=== PATIENT | male | born 1950 | race Caucasian/White ===

== ENCOUNTER 2017-02-28 08:39 | Day surgery (SDC) | payer MEDICARE, OTHER ==
[2017-02-28] MEDS ORDERED: Propofol 200 MG/20 ML SDV ONE (09:09)
[2017-02-28] MEDS ORDERED: Midazolam 1 MG/ML 2 ML SDV ONE (09:09)
[2017-02-28] MEDS ORDERED: fentaNYL 100 MCG/2 ML SDV ONE (09:09)
[2017-02-28] MEDS ORDERED: Lactated Ringers 1,000 ML IV SCH (09:15)
--- NOTE | 2017-03-01 08:23 | OR ---
DATE OF PROCEDURE: 02/28/2017 PREOPERATIVE DIAGNOSIS: History of colon polyps. POSTOPERATIVE DIAGNOSES: Diverticulosis, history of colon polyps. PROCEDURE: Colonoscopy to the cecum. ANESTHESIA: IV anesthesia with monitored anesthesia care. INDICATION: This 66-year-old white male is referred for a colonoscopy because in the remote past of having colon polyps. He says his last colonoscopic exam was done 5 years ago. He is having these every 5 years. I counseled him for the procedure including risks and alternatives, and he gave his informed consent to proceed. DESCRIPTION OF PROCEDURE: The patient was placed in the left lateral decubitus position. IV anesthesia was administered by the Anesthesia Service. Time-out was held. A rectal exam was performed, which was unremarkable. The flexible video Olympus colonoscope was introduced through his anus, up his rectum and out his colon all the way to the cecum. Once the cecum was reached, the scope was slowly withdrawn, examining the mucosa throughout. No mucosal abnormalities were noted until we reached the left side of the colon. Here, we saw a very rare diverticulum. The scope was retroflexed in the rectum with the distal rectum appearing unremarkable. The scope was straightened and removed. He tolerated the procedure well. Jay Calderon MD /[id number] AMANDA
== END 2017-02-28 12:10 | disposition home or self-care (01) ==
LOC: JP.SDS 08:39
PROVIDERS: ATTEND Surgery
DX: Z12.11 Encounter for screening for malignant neoplasm of colon (principal); K57.30 Diverticulosis of large intestine without perforation or abscess without bleeding; I10 Essential (primary) hypertension; F41.9 Anxiety disorder, unspecified; E11.9 Type 2 diabetes mellitus without complications; Z86.010 Personal history of colon polyps; Z88.2 Allergy status to sulfonamides; Z96.649 Presence of unspecified artificial hip joint
CPT/HCPCS: G0105; J2250; J2704; J3010; J7120

== ENCOUNTER 2020-07-05 14:47 | Emergency (ER) | payer BC, MEDICARE ==
[2020-07-05] MEDS ORDERED: Lidocaine 2% 20 ML MDV NERVRT ONE (15:51)
[2020-07-05] MEDS ORDERED: Bacitracin Oint 1 GM U/D Packet TOP ONE (15:52)
--- NOTE | 2020-07-05 15:53 | EDM.PDOC ---
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 His last tetanus was less than 10 yrs ago. Onset: Today, Sudden Onset Date: 07/05/20 Duration: Minutes: Location: Reports: Upper Extremity, Left Quality: Reports: Burning Severity: Mild Improves with: Reports: None Worsens with: Reports: Other (touching wound) Context: Reports: Trauma Associated Symptoms: Reports: No Other Symptoms Treatments GROCERY CHECKER: Reports: Dressing(s) - Related Data Allergies Allergy/AdvReac Type Severity Reaction Status Date / Time Sulfa (Sulfonamide Allergy Cannot Verified 07/05/20 15:11 Antibiotics) Remember Home Meds: Home Meds Cyanocobalamin (Vitamin B-12) [B-12] 1,000 mcg PO DAILY 02/24/17 [History] Lisinopril/Hydrochlorothiazide [Lisinopril-Hctz 10-12.5 mg Tab] 1 tab PO DAILY 02/24/17 [History] Metoprolol Succinate [Toprol Xl] 100 mg PO DAILY 02/24/17 [History] metFORMIN HCl [Metformin HCl ER] 750 mg PO BID 02/24/17 [History] Ibuprofen [Advil] 400 mg PO DAILY 05/21/18 [History] Azelaic Acid [Finacea] 1 applic TOP BID 07/05/20 [History] Past Medical History HEENT History: Reports: Impaired Vision Cardiovascular History: Reports: Hypertension Respiratory History: Reports: None Gastrointestinal History: Reports: Colon Polyp, Gastritis Genitourinary History: Reports: None Musculoskeletal History: Reports: Arthritis Neurological History: Reports: None Psychiatric History: Reports: Anxiety Endocrine/Metabolic History: Reports: Diabetes, Type II Hematologic History: Reports: None Immunologic History: Reports: None Oncologic (Cancer) History: Reports: None Dermatologic History: Reports: None - Infectious Disease History Infectious Disease History: Reports: Chicken Pox, Measles, Mononucleosis - Past Surgical History Head Surgeries/Procedures: Reports: None HEENT Surgical History: Reports: None Cardiovascular Surgical History: Reports: None Respiratory Surgical History: Reports: None GI Surgical History: Reports: Colonoscopy, EGD Endocrine Surgical History: Reports: None Musculoskeletal Surgical History: Reports: Hip Replacement Dermatological Surgical History: Reports: None Social & Family History - Family History Family Medical History: No Pertinent Family History - Tobacco Use Tobacco Use Status *Q: Never Tobacco User - Caffeine Use Caffeine Use: Reports: Coffee ED ROS GENERAL - Review of Systems Review Of Systems: See Below Constitutional: Reports: No Symptoms Musculoskeletal: Reports: No Symptoms Skin: Reports: Wound (avulsion distal L thumb, almazan surface. ) Neurological: Reports: No Symptoms ED EXAM, SKIN/RASH Exam: See Below Exam Limited By: No Limitations General Appearance: Alert, WD/WN, No Apparent Distress Extremities: Other (wound L distal thumb) Neurological: Alert, Oriented, CN II-XII Intact, Normal Cognition, No Motor/Sensory Deficits Psychiatric: Normal Affect, Normal Mood Skin: Warm, Dry, Normal Color, No Rash, Wound/Incision (2 cm avulsion distal L thumb almazan surface, not actively bleeding. ) Location, Skin: Upper Extremity, Left Characteristics: Linear Associated features: Tenderness ED SKIN PROCEDURES - Laceration/Wound Repair Left Anterior Distal Digit - 1st (Thumb) Appearance: Subcutaneous, Linear, Other (some tissue missing, avulsion) Distal NVT: Neuro & Vascular Intact, No Tendon Injury Anesthetic Type: Digital Local Anesthesia - Lidocaine (Xylocaine): 2% Plain Local Anesthetic Volume: 5cc Skin Prep: Saline Closed with: Sutures Lac/Wound length In cm: 2 Suture Size: 4-0 Suture Type: Nylon, Interrupted, Simple Drain Placement: No Sterile Dressing Applied: Nurse Tetanus Status Addressed: Yes Complications: No Course - Vital Signs Last Recorded V/S: Last Vital Signs Temp 36.8 C 07/05/20 15:18 Pulse 68 07/05/20 15:18 Resp 17 07/05/20 15:18 BP 178/91 H 07/05/20 15:18 Pulse Ox 100 07/05/20 15:18 - Orders/Labs/Meds Meds: Medications Discontinued Medications Generic Name Dose Route Start Last Admin Trade Name Freq PRN Reason Stop Dose Admin Bacitracin 1 dose 07/05/20 15:52 Bacitracin Oint 1 Gm U/D Packet TOP 07/05/20 15:53 ONETIME ONE Lidocaine HCl 7 ml 07/05/20 15:51 Lidocaine 2% 20 Ml Mdv NERVRT 07/05/20 15:52 ONETIME ONE Departure - Departure Time of Disposition: 16:30 Disposition: Home, Self-Care 01 Condition: Fair Clinical Impression: Laceration of left thumb Qualifiers: Encounter type: initial encounter Damage to nail status: without damage Foreign body presence: without foreign body Qualified Code(s): S61.012A - Laceration without foreign body of left thumb without damage to nail, initial encounter - Discharge Information *PRESCRIPTION DRUG MONITORING PROGRAM REVIEWED*: No *COPY OF PRESCRIPTION DRUG MONITORING REPORT IN PATIENT CALE: No Instructions: Laceration Care, Adult, [id number] Referrals: Asa Ruiz NP [Primary Care Provider] - Forms: ED Department Discharge Additional Instructions: Clean wound twice daily with soap and water. Dry. Apply antibiotic ointment and a new dressing. Elevate to decrease pain/swelling. Use ibuprofen or acetaminophen for pain relief. Stitches out in about 9 days. Recheck for signs of infection. Sepsis Event Note (ED) - Evaluation Sepsis Screening Result: No Definite Risk - Focused Exam Vital Signs: Vital Signs Temp Pulse Resp BP Pulse Ox 07/05/20 15:18 36.8 C 68 17 178/91 H 100 07/05/20 15:01 36.8 C 68 17 178/91 H 100
== END 2020-07-05 16:46 | disposition home or self-care (01) ==
LOC: JP.ED 14:47
DX: S61.012A Laceration without foreign body of left thumb without damage to nail, initial encounter (principal); I10 Essential (primary) hypertension; E11.9 Type 2 diabetes mellitus without complications; Z88.2 Allergy status to sulfonamides; Z79.84 Long term (current) use of oral hypoglycemic drugs; Z79.899 Other long term (current) drug therapy; W27.0XXA Contact with workbench tool, initial encounter
CPT/HCPCS: 12001; 99282; 99282-25

== ENCOUNTER 2020-09-24 05:34 | Day surgery (SDC) | payer MEDICARE ==
[2020-09-24] MEDS ORDERED: Nozin Nasal Sanitizer NASBOTH SCH (06:00)
[2020-09-24] MEDS ORDERED: Povidone-Iodine 10% Soln 118.25 ML Bottle ONE (06:46)
[2020-09-24] MEDS ORDERED: Lactated Ringers 1,000 ML IV SCH (07:00)
[2020-09-24] MEDS ORDERED: fentaNYL 250 MCG/5 ML SDV ONE (07:20)
[2020-09-24] MEDS ORDERED: Succinylcholine 200 MG/10 ML MDV ONE (07:21)
[2020-09-24] MEDS ORDERED: Propofol 200 MG/20 ML SDV ONE (07:21)
[2020-09-24] MEDS ORDERED: Rocuronium 50 MG/5 ML Vial ONE (07:21)
[2020-09-24] MEDS ORDERED: Dexamethasone 4 MG/ML SDV ONE (07:21)
[2020-09-24] MEDS ORDERED: Neostigmine Methylsulfate 1 MG/ML 5 ML Syringe ONE (07:21)
[2020-09-24] MEDS ORDERED: Glycopyrrolate 0.2 MG/ML 5 ML MDV ONE (07:21)
[2020-09-24] MEDS ORDERED: Ondansetron 4 MG/2 ML SDV ONE (07:21)
[2020-09-24] MEDS ORDERED: Bupivacaine 0.5% 30 ML SDV ONE (07:24)
[2020-09-24] MEDS ORDERED: cefOXitin 2 GM in Sodium Chloride 0.9% 50 ML IV ONE (07:30)
[2020-09-24] MEDS ORDERED: ceFAZolin 2 GM in Premix Bag 1 BAG IV ONE (07:30)
[2020-09-24] MEDS ORDERED: ePHEDrine 50 MG/ML SDV ONE (08:38)
[2020-09-24] MEDS ORDERED: Lactated Ringers 1,000 ML ONE (09:41)
[2020-09-24] MEDS ORDERED: Ondansetron 4 MG/2 ML SDV IVPUSH PRN (10:51)
[2020-09-24] MEDS ORDERED: Acetaminophen 325 MG Tab PO PRN (10:51)
[2020-09-24] MEDS ORDERED: Morphine 2 MG/ML SYRINGE IV PRN (10:51)
[2020-09-24] MEDS ORDERED: Acetaminophen/HYDROcodone 325-5 MG Tab PO PRN (10:51)
[2020-09-24] MEDS ORDERED: Magnesium Hydroxide 400 MG/5 ML Susp 30 ML Cup PO PRN (10:51)
[2020-09-24] MEDS ORDERED: LORazepam 1 MG Tab PO PRN (10:58)
[2020-09-24] MEDS ORDERED: Sodium Chloride 0.9% 1,000 ML IV SCH (11:00)
[2020-09-24] MEDS: ceFAZolin 1 GM in Premix Bag 1 BAG IV SCH ×2 (14:07→22:09)
--- NOTE | 2020-09-24 14:07 | CR ---
Shoulder 1V Lt CLINICAL HISTORY: Prosthesis FINDINGS: Patient is status post placement of left shoulder prosthesis. There is a small surgical drain in place. Components appear well seated Impression: Status post left shoulder arthroplasty
[2020-09-24] MEDS: metFORMIN 500 MG Tab PO SCH (16:05)
[2020-09-24] MEDS: Acetaminophen/oxyCODONE 325-5 MG Tab PO PRN (17:56)
[2020-09-24] MEDS: AZELAIC ACID TOP SCH (21:05)
[2020-09-24] MEDS: Docusate Sodium 100 MG Cap PO SCH (21:08)
[2020-09-24] MEDS: Nozin Nasal Sanitizer NASBOTH SCH (21:08)
[2020-09-24] MEDS: Aspirin 325 MG Tab.EC PO SCH (21:08)
[2020-09-25] MEDS: Acetaminophen/oxyCODONE 325-5 MG Tab PO PRN ×2 (03:51→08:47)
[2020-09-25] MEDS: ceFAZolin 1 GM in Premix Bag 1 BAG IV SCH (05:41)
--- NOTE | 2020-09-25 08:47 | PCM.DCSUM1 ---
Discharge Summary - Hospital Course Brief History: Patient is a pleasant 70 y/o male with worsening shoulder pain. Symptoms refractory to conservative management. Elected to undergo a left total shoulder replacement with arthrosurface OVO motion implant and inlay glenoid. Diagnosis: Stroke: No Modified Oh Scale: No Symptoms at All Modified Gordon Scale Score: 0 - Discharge Data Discharge Date: 09/25/20 Discharge Disposition: Home, Self-Care 01 Condition: Good - Referral to Home Health Date of Face to Face Encounter: 09/25/20 Reason for Homebound Status: Motivated to go home, with modifications is fairly independent with ADLs Primary Care Physician: Asa Ruiz NP - Patient Summary/Data Consults: Consultations 09/24/20 10:51 Consult to Case Management/Supervisor Taping [CONS] Routine Comment: Physician Instructions: Discharge placement post hip surgery Service(s) to be Consulted: Case Management Special Instructions: anticipate dc to home PT Evaluation and Treatment [CONS] Routine Please Evaluate and Treat. PT Reason for Consult: Post op Ortho Surgery Discharge Disposition: Home w Home Health Special Instructions: left shoulder arthroplasty, no ER past neutral ROM to elbow and wrist okay This query below is only for informational purposes and is not editable. 09/24/20 10:55 OT Evaluation and Treatment [CONS] Routine Please Evaluate and Treat. OT Reason for Consult: ADL's Special Instructions: Status post left total shoulder arthroplasty This query below is only for informational purposes and is not editable. Hospital Course: Patient is a pleasant 70 y/o male, s/p left total shoulder arthroplasty with the arthrosurface OVO motion and inlay glenoid implant. Patient tolerated surgery well with no complications. No acute events overnight. Patient has remained hemodynamically stable. Patient did have some leaking from around the CJ drain the afternoon and evening of surgery. Drain output over the past 24 hours: ~45 mL. Patient had great control with the block, which wore off around 1600 yesterday. Reports pain has since been managed with Percocet. Tolerating consistent carbohydrate diet well without nausea of emesis. Good appetite. POC Glucoses have been mildly elevated. Has worked with PT on AROM to wrist and elbow. Patient demonstrates understanding of ROM restrictions at shoulder. CJ drain had some leaking yesterday afternoon, new dressing applied over. CJ drain pulled and dressing changed on afternoon of POD#1 prior to discharge Exam: L UE neurovascular intact. Incision well approximated, no surrounding erythema nor active drainage. CJ drain hole with new steri above; no active drainage, surrounding erythema. Very mild warmth to touch of L shoulder. Edema present into L elbow, forearm, and digits 1-5. Demonstrates active and appropriate ROM to elbow and wrist. Beamer Helper strength diminished from swelling. - Patient Instructions Diet: Diabetic Diet Activity: Apply Ice Driving: Do Not Drive Showering/Bathing: Shower in AM Wound/Incision Care: Keep Operative Site/Wound Site Clean and Dry, Change Dressing Daily Notify Provider of: Fever, Increased Pain, Swelling and Redness, Drainage - Discharge Plan *PRESCRIPTION DRUG MONITORING PROGRAM REVIEWED*: Yes *COPY OF PRESCRIPTION DRUG MONITORING REPORT IN PATIENT CALE: Not Applicable Prescriptions/Med Rec: Acetaminophen/oxyCODONE [Percocet 325-5 MG] 1 - 2 each PO Q6HR PRN #30 tab PRN Reason: Pain Home Medications: Home Meds Cyanocobalamin (Vitamin B-12) [B-12] 1,000 mcg PO DAILY 02/24/17 [History] Lisinopril/Hydrochlorothiazide [Lisinopril-Hctz 10-12.5 mg Tab] 2 tab PO DAILY 02/24/17 [History] Metoprolol Succinate [Toprol Xl] 100 mg PO DAILY 02/24/17 [History] metFORMIN HCl [Metformin HCl ER] 750 mg PO BID 02/24/17 [History] Ibuprofen [Advil] 400 mg PO DAILY 05/21/18 [History] Azelaic Acid [Finacea] 1 applic TOP BID 07/05/20 [History] LORazepam [Ativan] 1 mg PO BID PRN 07/28/20 [History] Acetaminophen/oxyCODONE [Percocet 325-5 MG] 1 - 2 each PO Q6HR PRN #30 tab 09/25/20 [Rx] Aspirin 81 mg PO BID 09/25/20 [History] Oxygen Therapy Mode: Room Air Patient Handouts: Preventing Constipation After Surgery Referrals: Magda Alfaro PA [Ordering Only Provider] - 10/09/20 9:45 am (Please arrive 15 minutes early to register for your appointment.) - Discharge Summary/Plan Comment DC Time >30 min.: No Discharge Summary/Plan Comment: * Anticipate discharge to home today. * Instructions provided on SSI warning signs and return precautions. * Pain control: Sent prescription to patients pharmacy for 5mg-325 mg Percocet, 1-2 tabs PO q6 hrs prn, dispense #30 * Educated to take 1 Aspirin BID for blood clot prevention. * Education provided on ROM restrictions for shoulder. Patient to keep sling on for first two weeks. No external rotation past neutral. No heavy lifting. Okay to work ROM at elbow and fingers. Elevate arm with pillow to help with swelling. * Follow up with orthopedics in 2 weeks. Encouraged to reach out with any questions or concerns that arise prior to scheduled apt. Patient agreeable and expressed understanding of the above plan. - General Info Functional Status: Reports: Pain Controlled, Ambulating, Urinating, Incentive Spirometry - Review of Systems General: Reports: No Symptoms HEENT: Reports: No Symptoms Pulmonary: Reports: No Symptoms Cardiovascular: Reports: No Symptoms Gastrointestinal: Reports: No Symptoms Genitourinary: Reports: No Symptoms Musculoskeletal: Reports: Shoulder Pain (left ) Neurological: Reports: No Symptoms Psychiatric: Reports: No Symptoms - Patient Data Vitals - Most Recent: Last Vital Signs Temp 95.7 F L 09/25/20 07:28 Pulse 52 L 09/25/20 07:28 Resp 18 09/25/20 07:28 BP 119/65 09/25/20 07:28 Pulse Ox 100 09/25/20 07:28 Weight - Most Recent: 164 lb I&O - Last 24 hours: Intake & Output 09/24/20 09/25/20 09/25/20 22:59 06:59 14:59 Intake Total 700 100 Output Total 30 Balance 670 100 Lab Results - Last 24 hrs: Laboratory Results - last 24 hr 09/25/20 09/25/20 Range/Units 04:33 07:26 WBC 8.5 (4.5-11.0) K/uL RBC 3.60 L (4.30-5.90) M/uL Hgb 11.3 L D (12.0-15.0) g/dL Hct 34.1 L (40.0-54.0) % MCV 95 (80-98) fL MCH 31 (27-31) pg MCHC 33 (32-36) % Plt Count 171 (150-400) K/uL POC Glucose 124 H (74-106) mg/dL Med Orders - Current: Current Medications Acetaminophen (Acetaminophen 325 Mg Tab) 650 mg PO Q4H PRN PRN Reason: Pain/Fever Hydrocodone Bitart/Acetaminophen (Acetaminophen/Hydrocodone 325-5 Mg Tab) 1 tab PO Q4H PRN PRN Reason: Pain Aspirin (Aspirin 325 Mg Tab.Ec) 325 mg PO BID [facility] Last Admin: 09/24/20 21:08 Dose: 325 mg Documented by: Bandage/Support Products (Nozin Nasal Volunteer Assistant) 1 applic NASBOTH BID [facility] Stop: 09/30/20 21:01 Last Admin: 09/24/20 21:08 Dose: 1 applic Documented by: Docusate Sodium (Docusate Sodium 100 Mg Cap) 100 mg PO BID [facility] Last Admin: 09/24/20 21:08 Dose: 100 mg Documented by: Hydrochlorothiazide (Hydrochlorothiazide 25 Mg Tab) 25 mg PO DAILY [facility] Sodium Chloride (Normal Saline) 1,000 mls @ 125 mls/hr IV ASDIRECTED [facility] Last Admin: 09/24/20 16:04 Dose: 125 mls/hr Documented by: Lisinopril (Lisinopril 20 Mg Tab) 20 mg PO DAILY [facility] Lorazepam (Lorazepam 1 Mg Tab) 1 mg PO BID PRN PRN Reason: Anxiety Magnesium Hydroxide (Magnesium Hydroxide 400 Mg/5 Ml Susp 30 Ml Cup) 30 ml PO Q6H PRN PRN Reason: Stool Softener Metformin HCl (Metformin 500 Mg Tab) 750 mg PO BIDMEALS [facility] Last Admin: 09/24/20 16:05 Dose: 750 mg Documented by: Metoprolol Succinate (Metoprolol Succinate 50 Mg Tab.Er) 100 mg PO DAILY [facility] Morphine Sulfate (Morphine 2 Mg/Ml Syringe) 1 mg IV Q1H PRN PRN Reason: Breakthrough Pain Azelaic Acid [ Finacea] 50 Gm Gel * *Ptom 0 applic TOP BID [facility] Last Admin: 09/24/20 21:05 Dose: Not Given Documented by: Ondansetron HCl (Ondansetron 4 Mg/2 Ml Sdv) 4 mg IVPUSH Q6H PRN PRN Reason: Nausea/Vomiting Oxycodone/Acetaminophen (Acetaminophen/Oxycodone 325-5 Mg Tab) 1 - 2 tab PO Q4H PRN PRN Reason: Pain Last Admin: 09/25/20 03:51 Dose: 2 tab Documented by: Discontinued Medications Bandage/Support Products (Nozin Nasal Volunteer Assistant) 1 applic NASBOTH BID [facility] Last Admin: 09/24/20 06:03 Dose: 1 applic Documented by: Bupivacaine HCl (Bupivacaine 0.5% 30 Ml Sdv) Confirm Administered Dose 60 ml .ROUTE .STK-MED ONE Stop: 09/24/20 07:25 Dexamethasone (Dexamethasone 4 Mg/Ml Sdv) Confirm Administered Dose 4 mg .ROUTE .STK-MED ONE Stop: 09/24/20 07:22 Ephedrine Sulfate (Ephedrine 50 Mg/Ml Sdv) Confirm Administered Dose 50 mg .ROUTE .STK-MED ONE Stop: 09/24/20 08:39 Fentanyl (Fentanyl 250 Mcg/5 Ml Sdv) Confirm Administered Dose 250 mcg .ROUTE .STK-MED ONE Stop: 09/24/20 07:21 Glycopyrrolate (Glycopyrrolate 0.2 Mg/Ml 5 Ml Mdv) Confirm Administered Dose 1 mg .ROUTE .STK-MED ONE Stop: 09/24/20 07:22 Lactated Ringer's (Ringers, Lactated) 1,000 mls @ 75 mls/hr IV ASDIRECTED [facility] Last Admin: 09/24/20 06:03 Dose: 75 mls/hr Documented by: Cefazolin Sodium/Dextrose 2 gm (/ Premix) 50 mls @ 100 mls/hr IV ONETIME ONE Stop: 09/24/20 07:59 Last Admin: 09/24/20 07:55 Dose: 100 mls/hr Documented by: Lactated Ringer's (Ringers, Lactated) Confirm Administered Dose 1,000 mls @ as directed .ROUTE .STK-MED ONE Stop: 09/24/20 09:42 Cefazolin Sodium/Dextrose 1 gm (/ Premix) 50 mls @ 200 mls/hr IV Q8H [facility] Stop: 09/25/20 06:14 Last Admin: 09/25/20 05:41 Dose: 200 mls/hr Documented by: Neostigmine Methylsulfate (Neostigmine Methylsulfate 1 Mg/Ml 5 Ml Syringe) Conf irm Administered Dose 5 mg .ROUTE .STK-MED ONE Stop: 09/24/20 07:22 Ondansetron HCl (Ondansetron 4 Mg/2 Ml Sdv) Confirm Administered Dose 4 mg .ROUTE .STK-MED ONE Stop: 09/24/20 07:22 Povidone Iodine (Povidone-Iodine 10% Soln 118.25 Ml Bottle) Confirm Administered Dose 1 ml .ROUTE .STK-MED ONE Stop: 09/24/20 06:47 Last Admin: 09/24/20 08:50 Dose: 30 ml Documented by: Propofol (Propofol 200 Mg/20 Ml Sdv) Confirm Administered Dose 200 mg .ROUTE .STK-MED ONE Stop: 09/24/20 07:22 Rocuronium [place] (Rocuronium 50 Mg/5 Ml Vial) Confirm Administered Dose 50 mg .ROUTE .STK-MED ONE Stop: 09/24/20 07:22 Succinylcholine Chloride (Succinylcholine 200 Mg/10 Ml Mdv) Confirm Administered Dose 200 mg .ROUTE .STK-MED ONE Stop: 09/24/20 07:22 - Exam General: Reports: Alert, Oriented, Cooperative, No Acute Distress Extremities: Normal Capillary Refill, Arm Pain (left ), Other (edema of L UE ) Skin: Reports: Dry, Intact Wound/Incisions: Reports: Healing Well, Dressing Dry and Intact, Drainage (CJ drain ) Neurological: Reports: No New Focal Deficit Psy/Mental Status: Reports: Alert, Normal Affect, Normal Mood
[2020-09-25] MEDS: metFORMIN 500 MG Tab PO SCH (08:49)
[2020-09-25] MEDS: Nozin Nasal Sanitizer NASBOTH SCH (08:49)
[2020-09-25] MEDS: Aspirin 325 MG Tab.EC PO SCH (08:50)
[2020-09-25] MEDS: AZELAIC ACID TOP SCH (08:50)
[2020-09-25] MEDS: Docusate Sodium 100 MG Cap PO SCH (08:53)
[2020-09-25] MEDS ORDERED: Lisinopril 20 MG Tab PO SCH (09:00)
[2020-09-25] MEDS ORDERED: Metoprolol Succinate 50 MG Tab.ER PO SCH (09:00)
[2020-09-25] MEDS ORDERED: Hydrochlorothiazide 25 MG Tab PO SCH (09:00)
--- NOTE | 2020-10-06 13:26 | OR ---
DATE OF PROCEDURE: 09/24/2020 SURGEON: David Vega MD PREOPERATIVE DIAGNOSIS: Osteoarthritis, left shoulder. POSTOPERATIVE DIAGNOSIS: Osteoarthritis, left shoulder. PROCEDURE PERFORMED: Left total shoulder arthroplasty using Arthrosurface Ovo stemless head and inlay glenoid component. MORTGAGE LOAN OFFICER: SELVIN Rene ANESTHESIA: Interscalene block with general. INDICATIONS: Chago is a 70-year-old gentleman with a history of progressive pain in his left shoulder for the past year. It has gotten significantly worse in the past few months. Examination and imaging are consistent with osteoarthritis of the left shoulder with peripheral osteophytes, loss of articular cartilage, and intact cuff. He has failed conservative treatment. He now presents for left total shoulder arthroplasty. Risks, benefits, and potential complications of the procedure were discussed. DESCRIPTION OF PROCEDURE: After adequate anesthesia was obtained, the patient was placed in a beachchair position, and the left shoulder and arm were prepped and draped in a sterile fashion. An anterior incision was made and carried down through the subcutaneous tissues, and hemostasis was obtained with electrocautery. The deltopectoral interval was identified, and the cephalic vein was retracted with the deltoid. The clavipectoral fascia was divided, and a self-retaining retractor was then placed beneath the conjoined tendon and the deltoid. The lesser tuberosity was identified. The subscapularis was divided off the tuberosity, leaving approximately 1 cm of cuff. This was retracted medially with the capsule. The capsule was released along the inferior neck, exposing the inferior osteophyte. The osteophyte was removed with a rongeur. Further release was then continued, allowing dislocation of the head anteriorly. Some degenerative changes of the superior labrum and attachment of the biceps were noted. The biceps was tenodesed in situ in the canal using #2 Ethibond and divided from its insertion onto the superior labrum, and the intraarticular portion was excised. A centering guide placed over the humeral head, and a guide pin was then placed in the central position. Reamers were placed over the guide pin. The central remaining bone plug was removed. Attention was then turned to the glenoid. The glenoid labrum showed only minor degenerative changes and was essentially intact. The central portion of the glenoid showed degenerative change with loss of articular cartilage. The glenoid guide was positioned over the area of articular cartilage loss, and a guide pin was placed. Offset reamer was utilized to create a hemispherical depression in the glenoid. A curved awl was utilized to create additional channels in the bone which was quite sclerotic. The shoulder was irrigated, and a trial glenoid was placed which sat approximately 1 mm depressed, allowing for cement mantle. The trials were removed. This was irrigated once again. The socket for the glenoid component was dried, and cement was press-fit into the depression. Glenoid component was placed, excess cement was removed, and the component was held with compression until cement cured. The component was flush with the remaining cartilage. Attention was returned to the humeral head. The centering guide was pinned in position and the taper screw was placed. The depth of the taper screw was confirmed. It was irrigated, and an oval head size 52 x 48 was tapped into position and secured. Stability was confirmed with a Texline elevator which could not dislodge the cap. The shoulder was reduced and taken through range of motion. It showed excellent centering, approximately 50% translation anterior posterior. The shoulder was irrigated including a dilute Betadine solution irrigation. The subscapularis was repaired using #2 Ethibond in interrupted fashion. Once this was repaired, the arm could be externally rotated 30 degrees without significant tension on the repair. A drain was placed through a separate stab incision, and the skin was closed with 2-0 Vicryl and a running 3-0 Monocryl. Steri-Strips were applied. The drain was secured with Steri-Strips and OpSite. The patient tolerated the procedure well. There were no complications. He was taken from the operating room in stable condition. David Vega MD /[id number] AMANDA
== END 2020-09-25 13:15 | disposition home or self-care (01) ==
LOC: JP.SDS 05:34 → JP.MS 12:42 → JP.SDS 09-25 13:15
PROVIDERS: ATTEND Specialist
DX: M19.012 Primary osteoarthritis, left shoulder (principal); I10 Essential (primary) hypertension; G89.29 Other chronic pain; Z88.2 Allergy status to sulfonamides; Z98.890 Other specified postprocedural states; Z79.899 Other long term (current) drug therapy; Z79.82 Long term (current) use of aspirin
CPT/HCPCS: 36415; 73020-26-LT; 73020-LT; 80053; 82947; 85027; 97110-GP; 97162-GP; 97165-GO; 97530-GP; 97535-GO; 97535-GP; A9270-GY; C1713; J0330; J0690; J1100; J2405; J2704; J2710; J3010; J3490; J7030; J7120

== ENCOUNTER 2021-08-10 07:58 | Day surgery (SDC) | payer MEDICARE ==
[~2021-08-10 07:58] MED LIST: Bupivacaine 0.5% 30 ML SDV ONE; Bupivacaine 0.5% 50 ML MDV ONE; Midazolam 1 MG/ML 2 ML SDV ONE; Propofol 200 MG/20 ML SDV ONE; fentaNYL 100 MCG/2 ML SDV ONE
[2021-08-10] MEDS ORDERED: Nozin Nasal Sanitizer NASBOTH ONE (08:15)
[2021-08-10] MEDS ORDERED: Lactated Ringers 1,000 ML IV SCH (08:30)
[2021-08-10] MEDS ORDERED: ceFAZolin 1 GM in Premix Bag 1 BAG IV ONE (09:00)
[2021-08-10] MEDS ORDERED: Ondansetron 4 MG/2 ML SDV ONE (10:04)
[2021-08-10] MEDS ORDERED: fentaNYL 100 MCG/2 ML SDV ONE (10:04)
[2021-08-10] MEDS ORDERED: Dexamethasone 4 MG/ML SDV ONE (10:04)
[2021-08-10] MEDS ORDERED: ePHEDrine 50 MG/ML SDV ONE (10:16)
[2021-08-10] MEDS ORDERED: Sodium Chloride 0.9% 10 ML ONE (10:16)
[2021-08-10] MEDS ORDERED: Acetaminophen/HYDROcodone 325-5 MG Tab PO ONE ×2 (11:50→11:59)
== END 2021-08-10 12:35 | disposition home or self-care (01) ==
LOC: JP.SDS 07:58
PROVIDERS: ATTEND Specialist
DX: M25.812 Other specified joint disorders, left shoulder (principal); M75.52 Bursitis of left shoulder; M77.8 Other enthesopathies, not elsewhere classified; I10 Essential (primary) hypertension; F32.A Depression, unspecified; Z88.2 Allergy status to sulfonamides
CPT/HCPCS: 36415; 80053; 85027; A9270-GY; C1713; J0690; J1100; J2250; J2405; J2704; J3010; J3490; J7120

== ENCOUNTER 2022-05-14 05:58 | Day surgery (SDC) | payer MEDICARE ==
[2022-05-14] MEDS ORDERED: Midazolam 1 MG/ML 2 ML SDV ONE (06:56)
[2022-05-14] MEDS ORDERED: Propofol 200 MG/20 ML SDV ONE (06:56)
[2022-05-14] MEDS ORDERED: fentaNYL 50 MCG/ML SDV ONE (06:56)
[2022-05-14] MEDS ORDERED: Lactated Ringers 1,000 ML IV SCH (07:00)
== END 2022-05-14 09:06 | disposition home or self-care (01) ==
LOC: JP.SDS 05:58
PROVIDERS: ATTEND Student in an Organized Health Care Education/Training Program
DX: Z12.11 Encounter for screening for malignant neoplasm of colon (principal); K57.30 Diverticulosis of large intestine without perforation or abscess without bleeding; I10 Essential (primary) hypertension; F41.9 Anxiety disorder, unspecified; Z79.899 Other long term (current) drug therapy; Z88.2 Allergy status to sulfonamides
CPT/HCPCS: 45378; J2250; J2704; J3010; J7120

== ENCOUNTER 2024-01-06 06:24 | Day surgery (SDC) | payer MEDICARE ==
[2024-01-06 06:59] LABS: HEMATOCRIT 41.8 % (38.4-49.7); HEMOGLOBIN 14.8 g/dL (12.9-16.9); MEAN CORPUSCULAR HEMOGLOBIN 31.8 pg (31.6-35.5); MEAN CORPUSCULAR HGB CONC 35.4 g/dL (31.6-35.5); MEAN CORPUSCULAR VOLUME 89.7 fL (81.4-99.0); RED BLOOD CELL COUNT 4.66 M/uL (4.14-5.76); WHITE BLOOD CELL COUNT,WBC 6.2 K/uL (3.2-11.0)
[2024-01-06] MEDS: Indocyanine Green 25 MG SDV IV ONE (07:06)
[2024-01-06 07:19] LABS: ALANINE AMINOTRANSFERASE,ALT 31 U/L (12-78); ALBUMIN 4.1 g/dL (3.4-5.0); ALKALINE PHOSPHATASE 79 U/L (46-116); ASPARTATE AMNIOTRANSFERASE,AST 43 U/L (15-37); BLOOD UREA NITROGEN,BUN 22 mg/dL (7-18); CALCIUM 9.4 mg/dL (8.5-10.1); CARBON DIOXIDE,CO2 31 mmol/L (21-32); CHLORIDE,CL 99 mmol/L (100-108); CREATININE 1.2 mg/dL (0.8-1.3); ESTIMATED GFR 63 mL/min (>60); GLUCOSE RANDOM 119 mg/dL (74-106); POTASSIUM,K 4.3 mmol/L (3.6-5.2); PROTEIN TOTAL,TP 8.3 g/dL (6.4-8.2); SODIUM,NA 136 mmol/L (140-148)
[2024-01-06 07:20] LABS: ANION GAP 10.3 mmol/L (5.0-14.0)
[2024-01-06] MEDS ORDERED: fentaNYL 250 MCG/5 ML SDV ONE ×2 (07:20→08:29)
[2024-01-06] MEDS ORDERED: Neostigmine Methylsulfate 10 MG/10 ML MDV ONE (07:21)
[2024-01-06] MEDS ORDERED: Rocuronium 50 MG/5 ML Vial ONE (07:21)
[2024-01-06] MEDS ORDERED: Glycopyrrolate 0.2 MG/ML 5 ML MDV ONE (07:21)
[2024-01-06] MEDS ORDERED: Dexamethasone 4 MG/ML SDV ONE (07:21)
[2024-01-06] MEDS ORDERED: Ondansetron 4 MG/2 ML SDV ONE (07:21)
[2024-01-06] MEDS ORDERED: Propofol 200 MG/20 ML SDV ONE (07:21)
[2024-01-06] MEDS: Sodium Chloride 0.9% 1,000 ML IV SCH (07:36)
[2024-01-06] MEDS: metroNIDAZOLE/Normal Saline 500 MG in Premix Bag 1 BAG IV ONE (07:38)
[2024-01-06] MEDS: ceFAZolin 2 GM in Premix Bag 1 BAG IV ONE (08:08)
[2024-01-06] MEDS: Bupivacaine 0.5% 50 ML MDV ONE (08:28)
[2024-01-06] MEDS: Lidocaine 1% with EPINEPHrine 1:100,000 50 ML MDV ONE (08:28)
[2024-01-06] MEDS: Ropivacaine 36 ML, dexAMETHasone 8 MG, EPINEPHrine 0.4 MG, Sodium Chloride 0.9% 41.6 ML NERVRT SCH (08:28)
[2024-01-06] MEDS ORDERED: Ketorolac 30 MG/ML SDV ONE (08:46)
[2024-01-06] MEDS: Acetaminophen/HYDROcodone 325-5 MG Tab PO ONE (10:31)
== END 2024-01-06 11:00 | disposition home or self-care (01) ==
LOC: JP.SDS 06:24
PROVIDERS: ATTEND Surgery
DX: K80.10 Calculus of gallbladder with chronic cholecystitis without obstruction (principal); I10 Essential (primary) hypertension; F41.9 Anxiety disorder, unspecified; Z79.899 Other long term (current) drug therapy; Z88.2 Allergy status to sulfonamides
CPT/HCPCS: 00790; 36415; 47563; 80053; 82947; 85027; 88304; A9270; J0171; J0665; J0690; J1100; J1596; J1836; J1885; J2405; J2704; J2710; J2795; J3010; J3490; J7030